=== PATIENT | female | born 1985 | race Caucasian/White ===

== ENCOUNTER 2017-04-14 20:19 | Inpatient (IN) | payer OTHER ==
[~2017-04-14] VITALS: Ht 167.6 cm; Wt 113.4 kg
[~2017-04-14 20:19] MED LIST: RANI150 PO; SULF1TAB47 PO
[2017-04-14 21:50] LABS: AUTOMATED NEUTROPHIL # 5.4 TH/MM3 (1.8-7.7); BASOPHIL % 0.4 % (0.0-2.0); EOSINOPHIL # 0.1 TH/MM3 (0-0.4); EOSINOPHIL % 0.9 % (0.0-4.0); HEMATOCRIT 29.2 % (35.0-46.0); HEMO FLAGS DIFF FINAL; LYMPH % 24.3 % (9.0-44.0); LYMPHOCYTE # 1.9 TH/MM3 (1.0-4.8); MEAN CELL VOLUME 83.8 FL (80.0-100.0); MEAN CORPUSCULAR HEMOGLOBIN 28.5 PG (27.0-34.0); MONO % 6.6 % (0.0-8.0); NEUT % 67.8 % (16.0-70.0); PLATELET COUNT 239 TH/MM3 (150-450); RED BLOOD COUNT 3.48 MIL/MM3 (4.00-5.30); RED CELL DISTRIBUTION WIDTH 13.8 % (11.6-17.2); WHITE BLOOD COUNT 7.9 TH/MM3 (4.0-11.0)
[2017-04-14 21:57] LABS: BACTERIA, URINE OCC /hpf; BLOOD, URINE NEG (NEG); COMMENT (UR) CULT NOT INDICATED; CULTURE IF INDICATED CULT NOT INDICATED; GLUCOSE,URINE NEG (NEG); HYALINE CAST, URINE 2 /lpf (RARE); KETONE, URINE 10 mg/dL (NEG); MUCUS URINE MANY /lpf (OCC); NITRITE,URINE NEG (NEG); PH, URINE 5.5 (5.0-8.5); SQUAMOUS EPITHELIAL CELL URINE 4 /hpf (0-5); URINE COLOR YELLOW (YELLW/STRAW)
[2017-04-14] MEDS ORDERED: SODIUM CHLORIDE 0.9% FLUSH 10 ML FLUSH IV FLUSH PRN (22:00)
[2017-04-14] MEDS ORDERED: LIDOCAINE HCL 1% 50 ML VIAL I-DERMAL PRN (22:00)
[2017-04-14] MEDS ORDERED: LIDOCAINE HCL 1% 50 ML VIAL INFIL PRN (22:00)
[2017-04-14] MEDS ORDERED: NS 1000 ML IV PRN (22:00)
[2017-04-14] MEDS ORDERED: OXYTOCIN 30 UNITS 500ML PREMIX IV ONE (22:00)
[2017-04-14] MEDS ORDERED: MINERAL OIL 10 ML VIAL TOPICAL PRN (22:00)
[2017-04-14] MEDS ORDERED: NS 1000 ML OTHER PRN (22:00)
[2017-04-14] MEDS ORDERED: DINOPROSTONE 10 MG INSERT-LEAVE FOR 12 HOURS VAGINAL ONE (22:00)
[2017-04-14] MEDS ORDERED: CITRIC ACID-SODIUM CITRATE LIQ 30 ML UDC PO SCH (22:00)
[2017-04-14] MEDS ORDERED: LACTATED RINGER'S 1000 ML IV SCH (22:00)
[2017-04-14] MEDS ORDERED: NS 500 ML BOLUS IV PRN (22:00)
[2017-04-14] MEDS ORDERED: ONDANSETRON HCL 4 MG/2 ML VIAL IV PRN (22:00)
[2017-04-14] MEDS ORDERED: ZOLPIDEM TARTRATE 10 MG TAB PO PRN (22:00)
[2017-04-14] MEDS ORDERED: LACTATED RINGER'S 1000 ML INJ 1,000 ML IV SCH (22:00)
[2017-04-14] MEDS ORDERED: LACTATED RINGER'S 1000 ML BOLUS IV PRN (22:00)
[2017-04-14] MEDS ORDERED: ACETAMINOPHEN 325 MG TAB PO PRN (22:15)
[2017-04-14 23:46] VITALS: BP 104/52; PULSE 80
[2017-04-14 23:50] VITALS: RESP 18; TEMP 97.8
[2017-04-15] VITALS (27 sets, daily range): BP systolic 97–119; BP diastolic 45–73; PULSE 70–93; RESP 1–19; TEMP 97.4–98.7; O2SAT 100
[2017-04-15] MEDS ORDERED: PENICILLIN G POT 5,000,000 UNITS/NS 100 ML (Mini-Bag Plus) IV ONE ×2 (10:00)
[2017-04-15] MEDS ORDERED: OXYTOCIN 30 UNITS-500ML PREMIX 500 ML IV SCH (10:30)
--- NOTE | 2017-04-15 10:39 | PD.LABORPN ---
Subjective Subjective Feeling contractions every 3-5 min; no longer feeling vaginal burning s/p cervidil being removed around 845A today; questionable LOF but pt has been ambulating to frequently Objective Vital Signs Vital Signs Date Time Temp Pulse Resp B/P Pulse Ox O2 Delivery O2 Flow Rate FiO2 04/15/17 10:15 17 04/15/17 09:38 16 04/15/17 07:15 17 04/15/17 05:58 97.5 18 04/15/17 05:57 90 111/73 04/15/17 05:00 18 04/15/17 05:00 90 04/15/17 05:00 108/66 04/15/17 05:00 97.4 1 04/15/17 04:00 18 04/15/17 03:00 18 04/15/17 03:00 97.7 Objective Pelvic Exam: Cervix: [mid] Dilatation: [3-4] Effacement: [70] Station: [-3] Presentation: [vtx] Membranes: [intact] Uterine Contractions: [q3-5 min] FHT's: Category: [I] Baseline: [140s] Reactive: [y] Variability: [y] Decels: [n] Assessment/Plan Problem List: (1) Labor and delivery indication for care or intervention (2) Gestational diabetes Assessment and Plan 31 yo G1 with crowder IUP at 39w5d by LMP c/w 1st trimester sono admit for IOL at term due to GDM, S>D, suspected macrosomia 1) IOL: pt aware of risk of failed induction and need for , especially based on suspected CPD; s/p cervidil overnight, progressed from 2 > 3-4 cm but still very high station; start pitocin augmentation, plan IUPC after SROM or AROM to monitor labor progress closely; ok for epidural if desires 2) GDM: diet controlled, continue accuchecks as ordered, wnl 3) status: Cat I tracing, EFW 9+ # Marta Murillo MD Apr 15, 2017 10:39
[2017-04-15] MEDS: PENICILLIN G POT 2,500,000 UNITS/NS 100 ML IV SCH ×4 (10:44→14:10)
[2017-04-15] MEDS ORDERED: LACTATED RINGER'S 1000 ML INJ 1,000 ML IV ONE (18:59)
--- NOTE | 2017-04-15 19:01 | HHI.PR ---
HAIR DRESSER Note Note Recheck of patient with no cervical waste/materials exchange specialist past 7 hours. SVE remains 3-4/ 70/-3. head very anterior and not applied. Suspect CPD. D/w pt option: continue augmentation with suspected CPD or proceed with now for arrest of labor. Reviewed r/b/a of surgery, procedure reviewed in detail, all questions answered. pt & agree to proceed with . kettle coordinator, anesthesia team made aware. Preop orders placed. Marta Murillo MD Apr 15, 2017 19:01
[2017-04-15] MEDS ORDERED: PERI8.6T PO (19:03)
[2017-04-15] MEDS ORDERED: PERC5TAB12 PO (19:03)
[2017-04-15] MEDS ORDERED: IBUP-232 PO (19:03)
[2017-04-15] MEDS ORDERED: MORPHINE SULFATE PF 5 MG/10 ML VIAL ONE (19:27)
[2017-04-15] MEDS ORDERED: OXYTOCIN 10 UNIT/ML AMP ONE (19:27)
[2017-04-15] MEDS ORDERED: ceFAZolin 2 GM PREMIX 50 ML IV SCH (20:00)
[2017-04-15] MEDS ORDERED: ONDANSETRON HCL 4 MG/2 ML VIAL IV PUSH PRN (20:30)
[2017-04-15] MEDS ORDERED: KETOROLAC TROMETHAMINE 60 MG/2 ML (IM) VIAL IM PRN (20:30)
[2017-04-15] MEDS ORDERED: CITRIC ACID-SODIUM CITRATE LIQ 30 ML UDC PO SCH (20:30)
[2017-04-15] MEDS ORDERED: OXYTOCIN 30 UNITS-500ML PREMIX 500 ML IV ONE (20:30)
[2017-04-15] MEDS ORDERED: ACETAMINOPHEN 1000 MG/100 ML VIAL IV ONE (20:30)
[2017-04-15] MEDS ORDERED: ZOLPIDEM TARTRATE 5 MG TAB PO PRN (20:30)
[2017-04-15] MEDS ORDERED: ACETAMINOPHEN 325 MG TAB PO PRN (20:30)
[2017-04-15] MEDS ORDERED: SIMETHICONE 80 MG CHEWABLE TAB PO PRN (20:30)
[2017-04-15] MEDS ORDERED: SODIUM CHLORIDE 0.9% FLUSH 10 ML FLUSH IV FLUSH PRN (20:30)
--- NOTE | 2017-04-15 20:34 | PD.OB.DELI ---
Procedure Note Section Procedure Pre Op Diagnosis: (1) Arrested active phase of labor (2) Labor and delivery indication for care or intervention (3) Gestational diabetes Post Op Diagnosis: (1) S/P primary low transverse (2) Arrested active labor, delivered, current hospitalization (3) Gestational diabetes Performed by Marta Murillo Procedure: Primary Low Transverse Sec Indication for delivery: Other (arrested labor, suspected CPD/macrosomia) Informed consent obtained: For anesthesia, For procedure Confirmed correct: Patient, Procedure, Site, Time-out taken Anesthesia: Spinal Medication prior to procedure: As documented in eMAR Monitoring during procedure: Blood pressure monitoring, compliance monitor, Pulse oximetry Urinary catheter: Inserted using sterile technique, To dependent drainage, ml urine output (50) Sterile preparation: Duraprep, In usual fashion, With drapes to expose affected area Position: Supine with wedge to right side Operative Features Skin Incision: Pfannenstiel Uterine Incision: Low transverse w/knife / scissors Membranes Ruptured: Amount of liquid (copious), Appearance of fluid (clear) Presentation: Vertex, Other (occult cord prolapse at time of hysterotomy) Delivery of : Uneventful : Male, Single One Minute : 9 Five Minute : 9 Weight: 9#12oz Status of : Viable, Cord blood, Nursery present Placenta delivered: Intact Medications: Antibiotics (Ancef 2g IV preop) Estimated blood loss: 800 mL Procedure tolerated: Well Maternal Condition: Stable Condition: Stable Procedure in detail see dictated op note for full details Marta Murillo MD Apr 15, 2017 20:34
[2017-04-15] MEDS ORDERED: SODIUM CHLORIDE 0.9% FLUSH 10 ML FLUSH IV FLUSH SCH (21:00)
--- NOTE | 2017-04-15 21:07 | MP ---
cc: MIKAYLA BURTON DATE OF SURGERY 04/15/17 PREOPERATIVE DIAGNOSIS 1. Osuna intrauterine at 39 weeks and 5 days. 2. Arrest of labor, failure to progress. 3. Gestational diabetes, diet controlled. 4. Suspected macrosomia. 5. Suspected cephalopelvic disproportion. POSTOPERATIVE DIAGNOSIS 1. Osuna intrauterine at 39 weeks and 5 days. 2. Arrest of labor, failure to progress. 3. Gestational diabetes, diet controlled. 4. Suspected macrosomia. 5. Suspected cephalopelvic disproportion. 6. Postop day number zero. INDICATIONS Latha Tinajero is a 31-year-old 1, now para 1-0-0-1 who was seen and evaluated during her with complication of gestational diabetes. When she was seen at her at 39 and 1/2 week office visit her cervix was favorable, 2 cm dilated, 50% effaced and discussion for labor induction due to complication of gestational diabetes. She was brought in for induction on the evening of April 14 with Cervidil overnight. She progressed from 2 to 4 cm, 70% effaced at -3 station. She had consistent contractions throughout the day on Pitocin augmentation with no cervical change after more than 7 hours. Diagnosed with arrest of labor and decision for delivery. PROCEDURE PERFORMED Primary low transverse delivery with low vertical extension, not in the contractile portion of the uterus. SURGEON Mikayla Burton MD ANESTHESIA Spinal. ESTIMATED BLOOD LOSS 800 ml. IV FLUID PLACEMENT 2200 ml. URINE OUTPUT 50 ml clear urine draining in the Celeste at the end of the procedure. The patient had voided just prior to coming into the operating room. SPECIMEN None. COUNTS Sponge, lap, instrument, needle correct x2 at the conclusion of the procedure. INTRAOPERATIVE FINDINGS Include a vigorous male weighing 9 pounds 12 ounces with Apgars of 9 and 9. Copious amniotic fluid. At time of hysterotomy there was an occult cord prolapse that was able to be reduced. There was very small vertical extension of the low transverse uterine incision but it was not in the contractile portion of the uterus and this was able to be incorporated into the repair of the low transverse uterine incision. PROPHYLAXIS Ancef 2 grams IV was given preoperatively. The patient had been on penicillin during labor process due to GBS positive status. SCDs were on and functioning throughout the entire case. COMPLICATIONS A small low vertical extension of the low transverse hysterotomy. This should not preclude the patient's attempt for vaginal after in the future, but based on her anatomy with narrow pelvis if there is any suspicion for 8 pounds or greater infant weight I will residential youth counselor patient in the future for elective repeat . PROCEDURE IN DETAIL After reviewing the informed consent the patient was taken to the operating suite where a time-out was formed to identify the patient, planned procedure and any known allergies to her drugs or drug products. The patient was then placed sitting up on the operative table and spinal anesthesia was administered without difficulty and found to be adequate. The patient was then laid in dorsal supine position with a bump under her right side. Abdomen and perineum were prepped and draped in normal sterile fashion and Celeste catheter was placed using sterile technique. Pfannenstiel's type skin incision was made with the scalpel, carried down to the underlying layer of fascia with Bovie. Fascia was incised in the midline. Incision was extended laterally with sharp dissection using Ly scissors. Superior edge of the fascial incision was elevated with Manju clamps. Rectus muscles dissected off sharply with Ly scissors. Kochers then moved to the inferior portion of the fascial incision and again elevated and rectus muscle dissected off sharply with Ly scissors. Rectus muscles were then in the midline. Peritoneum identified, entered bluntly. Incision was extended laterally with blunt dissection. Bladder blade was placed. A bladder flap was not made. Low transverse uterine incision was made with a scalpel. On entry into the uterine cavity there was an immediate occult cord prolapse. This was reduced. It was difficult to laterally extend the incision as necessary with bandage scissors so a small midline low vertical incision was made. The 's head was then grasped and delivered successfully out through the incision, with gentle maneuvering the rest of the body readily followed. The infant was immediately crying upon delivery. Cord was doubly clamped and cut and was handed off to the awaiting nursery staff. Cord blood sample was taken. Placenta was delivered spontaneously with gentle cord traction and fundal massage. Uterus was exteriorized, cleared of all clots and debris with sterile moist lap sponges. Hysterotomy was repaired in a double layer, first using #1 chromic in a running locked fashion and that small low vertical extension was able to be incorporated into the low transverse incision line. A second imbricating layer was then performed with excellent hemostasis noted. The posterior cul-de-sac was then irrigated copiously with warm sterile saline. The uterus was returned to the abdomen. Additional irrigation with suction was performed. A layer of Interceed was placed over the repaired incision line to act as an adhesive barrier. The peritoneum was then closed in a running layer with 2-0 chromic. Fascia was closed in running layer of #1 Vicryl. Subcutaneous tissue was irrigated copiously with warm sterile saline and the skin was closed in subcuticular fashion with 3-0 Monocryl. Skin was cleaned and dried and standard dressing was placed. The procedure completed at this point. The patient tolerated the procedure well. DISPOSITION The patient and infant are resting in the Post Anesthesia Care Unit. is nursery status. MD NAOMI Winchester/BHAVIN /8:24 PM /8:36 PM ANDRIY
[2017-04-15] MEDS ORDERED: EPIDURAL-NALOXONE HCL 0.4 MG/ML AMP IV PRN (22:30)
[2017-04-15] MEDS ORDERED: EPIDURAL-NO SYSTEMIC NARCOTICS PRN (22:30)
[2017-04-15] MEDS ORDERED: EPIDURAL-DIPHENHYDRAMINE HCL 50 MG CAP PO PRN (22:30)
[2017-04-15] MEDS ORDERED: EPIDURAL-DO NOT ADMINISTER ANTICOAGULANTS PRN (22:30)
[2017-04-15] MEDS ORDERED: EPIDURAL-DIPHENHYDRAMINE HCL 50 MG/ML VIAL IV PUSH PRN (22:30)
[2017-04-16] VITALS (10 sets, daily range): BP systolic 89–109; BP diastolic 55–64; PULSE 59–94; RESP 16–20; TEMP 97.5–98.9
[2017-04-16] MEDS ORDERED: LACTATED RINGER'S 1000 ML INJ 1,000 ML IV SCH (01:27)
[2017-04-16] MEDS: LACTATED RINGER'S 1000 ML INJ 1,000 ML IV SCH ×2 (04:16→08:49)
[2017-04-16 05:22] LABS: BASOPHIL % 0.1 % (0.0-2.0); EOSINOPHIL % 0.1 % (0.0-4.0); HEMATOCRIT 27.6 % (35.0-46.0); HEMO FLAGS DIFF FINAL; LYMPH % 7.6 % (9.0-44.0); LYMPHOCYTE # 0.9 TH/MM3 (1.0-4.8); MEAN CELL VOLUME 85.1 FL (80.0-100.0); MEAN CORPUSCULAR HEMOGLOBIN 27.1 PG (27.0-34.0); MEAN CORPUSCULAR HGB CONC 31.8 % (32.0-36.0); NEUT % 88.2 % (16.0-70.0); PLATELET COUNT 229 TH/MM3 (150-450); RED BLOOD COUNT 3.24 MIL/MM3 (4.00-5.30); RED CELL DISTRIBUTION WIDTH 13.7 % (11.6-17.2); WHITE BLOOD COUNT 12.5 TH/MM3 (4.0-11.0)
[2017-04-16] MEDS ORDERED: OXYTOCIN 30 UNITS-500ML PREMIX 500 ML IV PRN (06:30)
[2017-04-16] MEDS: DOCUSATE SODIUM 50 MG/SENNA 8.6 MG TAB PO SCH ×2 (08:17→20:24)
[2017-04-16] MEDS: oxyCODONE/ACETAMINOPHEN 5 MG/325 MG TAB PO PRN ×3 (08:17→19:16)
[2017-04-16] MEDS: IBUPROFEN 600 MG TAB PO PRN ×3 (08:17→20:24)
--- NOTE | 2017-04-16 08:55 | HHI.OB ---
Subjective Post Operative Day: 1 Remarks s/p primary LTCD after arrest of labor, suspected CPD Objective Vitals/I&O Vital Signs Date Time Temp Pulse Resp B/P Pulse Ox O2 Delivery O2 Flow Rate FiO2 04/16/17 08:00 97.5 18 04/16/17 08:00 85 94/64 04/16/17 07:50 59 89/55 04/16/17 04:00 92/57 04/16/17 04:00 97.9 72 16 04/16/17 00:15 98.0 70 16 109/62 04/15/17 21:45 112/56 04/15/17 21:45 70 18 100 04/15/17 21:30 77 18 105/54 100 04/15/17 21:15 93 107/61 04/15/17 21:15 18 100 04/15/17 21:00 74 18 100 04/15/17 21:00 101/51 04/15/17 20:45 90 18 106/56 100 04/15/17 20:30 97.9 18 100 04/15/17 20:30 92 106/59 04/15/17 18:31 78 119/60 04/15/17 18:30 98.2 18 04/15/17 16:36 91 97/54 04/15/17 15:43 78 100/45 04/15/17 14:24 18 04/15/17 13:27 18 04/15/17 13:00 77 98/54 04/15/17 13:00 19 04/15/17 11:30 17 04/15/17 10:45 98.7 04/15/17 10:45 18 04/15/17 10:39 89 117/67 04/15/17 10:15 17 04/15/17 09:38 16 Result Diagram: 04/16/17 0505 Objective Remarks GENERAL: Well-nourished, well-developed patient. Obese. Slightly pale this AM. Has not eaten since 1pm yesterday. CARDIOVASCULAR: Regular rate and rhythm without murmurs, gallops, or rubs. RESPIRATORY: Breath sounds equal bilaterally. No accessory muscle use. ABDOMEN/GI: Abdomen soft, non-tender, bowel sounds present. Incision: bandage Clean, dry and intact. Fundus: Firm, non-tender at umbilicus. GENITOURINARY: Light bleeding. EXTREMITIES: No cyanosis or edema, non-tender, without signs of DVT. Medications and IVs Current Medications Medications (Trade) Dose Ordered Sig/Deon Route Start Time Stop Time Status Last Admin Oxytocin 500 ml @ 0 mls/hr TITRATE IV 04/15/17 10:30 04/15/17 10:45 Lactated Ringer's 1,000 ml @ 150 mls/hr Q6H40M IV 04/15/17 19:29 04/16/17 04:16 (Lr 1000 ml Inj) 1,000 ml @ 100 mls/hr Q10H IV 04/16/17 01:27 04/16/17 21:26 (NS Flush) 2 ml UNSCH PRN IV FLUSH 04/15/17 20:30 (Mylicon Chew) 80 mg QID PRN PO 04/15/17 20:30 (Tylenol) 650 mg Q6H PRN PO 04/15/17 20:30 (Motrin) 600 mg Q6H PRN PO 04/15/17 20:30 04/16/17 08:17 (Toradol Inj) 30 mg Q6H PRN IM 04/15/17 20:30 04/16/17 20:29 (Percocet 5-325 Mg) 1 tab Q4H PRN PO 04/15/17 20:30 04/16/17 08:17 (Percocet 5-325 Mg) 2 tab Q4H PRN PO 04/15/17 20:30 (Brenda-Colace) 1 tab Q12H PO 04/16/17 09:00 04/16/17 08:17 (Ambien) 5 mg HS PRN PO 04/15/17 20:30 (M-M-R Ii Inj) 0.5 ml ONCE ONCE SQ 04/16/17 16:00 04/16/17 16:01 (Boostrix Inj) 0.5 ml ONCE ONCE IM 04/16/17 16:00 04/16/17 16:01 (Zofran Inj) 4 mg Q6H PRN IV PUSH 04/15/17 20:30 Miscellaneous Information NO SYSTEMIC NARCOTICS TO BE GIVEN FO... UNSCH PRN .XX 04/15/17 22:30 04/16/17 22:29 (Narcan Inj) 0.4 mg UNSCH PRN IV 04/15/17 22:30 04/16/17 22:29 (Benadryl Inj) 25 mg Q6H PRN IV PUSH 04/15/17 22:30 04/16/17 22:29 (Benadryl) 50 mg Q6H PRN PO 04/15/17 22:30 04/16/17 22:29 04/16/17 02:03 Miscellaneous Information ALL NURSING DEPARTMENTS UNSCH PRN .XX 04/15/17 22:30 04/16/17 22:29 Assessment/Plan Problem List: (1) S/P primary low transverse (2) Arrested active labor, delivered, current hospitalization (3) Gestational diabetes Assessment and Plan PPD/POD#1 routine supportive care, pt feeling weak, has not eaten since 1P yesterday was able to ambulate, lara just removed, not yet voided encourage advance diet, ambulate, shower & remove bandage for circ, not feeding well yet, will plan for tmrw AM not yet meeting d/c criteria Discharge Planning routine, POD#3 Marta Murillo MD Apr 16, 2017 08:55
[2017-04-16] MEDS ORDERED: MEASLES, MUMPS, RUBELLA VACCINE 0.5 ML VIAL SQ ONE (16:00)
[2017-04-16] MEDS ORDERED: DIPHTH/TETANUS/ACEL PERTUSSIS (BOOSTER) 0.5 ML VIAL/PFS IM ONE (16:00)
[2017-04-17] MEDS: oxyCODONE/ACETAMINOPHEN 5 MG/325 MG TAB PO PRN ×4 (00:01→17:43)
[2017-04-17] MEDS: IBUPROFEN 600 MG TAB PO PRN ×3 (02:19→17:42)
[2017-04-17 08:00] VITALS: BP 88/48; PULSE 80; RESP 16; TEMP 98.1
[2017-04-17] MEDS: DOCUSATE SODIUM 50 MG/SENNA 8.6 MG TAB PO SCH (08:29)
--- NOTE | 2017-04-17 09:26 | HHI.OB ---
Subjective Post Operative Day: 2 Remarks Pt doing better today, ambulating, dimple po Objective Vitals/I&O Vital Signs Date Time Temp Pulse Resp B/P Pulse Ox O2 Delivery O2 Flow Rate FiO2 04/17/17 08:00 98.1 80 16 88/48 04/16/17 20:00 94 18 100/55 04/16/17 20:00 98.1 04/16/17 17:20 18 04/16/17 15:15 20 04/16/17 13:24 98.9 82 18 105/61 04/16/17 12:30 16 04/16/17 10:10 18 Result Diagram: 04/16/17 0505 Objective Remarks GENERAL: Well-nourished, well-developed patient. Obese. Slightly pale this AM. Has not eaten since 1pm yesterday. CARDIOVASCULAR: Regular rate and rhythm without murmurs, gallops, or rubs. RESPIRATORY: Breath sounds equal bilaterally. No accessory muscle use. ABDOMEN/GI: Abdomen soft, non-tender, bowel sounds present. Incision: Clean, dry and intact. Fundus: Firm, non-tender at umbilicus. GENITOURINARY: Light bleeding. EXTREMITIES: No cyanosis or edema, non-tender, without signs of DVT. Medications and IVs Current Medications Medications (Trade) Dose Ordered Sig/Deon Route Start Time Stop Time Status Last Admin Oxytocin 500 ml @ 0 mls/hr TITRATE IV 04/15/17 10:30 04/15/17 10:45 (Lr 1000 ml Inj) 1,000 ml @ 150 mls/hr Q6H40M IV 04/15/17 19:29 04/16/17 04:16 (NS Flush) 2 ml UNSCH PRN IV FLUSH 04/15/17 20:30 (Mylicon Chew) 80 mg QID PRN PO 04/15/17 20:30 (Tylenol) 650 mg Q6H PRN PO 04/15/17 20:30 (Motrin) 600 mg Q6H PRN PO 04/15/17 20:30 04/17/17 02:19 (Percocet 5-325 Mg) 1 tab Q4H PRN PO 04/15/17 20:30 04/17/17 06:06 (Percocet 5-325 Mg) 2 tab Q4H PRN PO 04/15/17 20:30 (Brenda-Colace) 1 tab Q12H PO 04/16/17 09:00 04/17/17 08:29 (Ambien) 5 mg HS PRN PO 04/15/17 20:30 (Zofran Inj) 4 mg Q6H PRN IV PUSH 04/15/17 20:30 Assessment/Plan Problem List: (1) S/P primary low transverse (2) Arrested active labor, delivered, current hospitalization (3) Gestational diabetes Assessment and Plan PPD/POD#2 continue routine supportive care, pain control improved today, pt circ performed on today Discharge Planning routine, POD#3 Brigida Smith MD Apr 17, 2017 09:26
[2017-04-17 10:47] VITALS: BP 108/67; PULSE 94; RESP 16
[2017-04-17 21:10] VITALS: BP 95/62; PULSE 80; RESP 18; TEMP 98.4
[2017-04-18] MEDS: DOCUSATE SODIUM 50 MG/SENNA 8.6 MG TAB PO SCH ×2 (00:30→09:01)
[2017-04-18] MEDS: oxyCODONE/ACETAMINOPHEN 5 MG/325 MG TAB PO PRN ×2 (00:30→06:33)
[2017-04-18] MEDS: IBUPROFEN 600 MG TAB PO PRN ×2 (00:30→06:33)
--- NOTE | 2017-04-18 07:51 | MH ---
cc: LUDWIN STARKEY M.D. DATE OF ADMISSION: 04/14/2017 DATE OF : 1985 PATIENT HISTORY The patient is 31-year-old female, 1, para 0, estimated date confinement is April 20, 2017. Last menstrual period was July 14, 2016. First trimester ultrasound performed September 23, 2016 measured 10 weeks and 2 days on a crown-rump length. The patient presented today for routine care. A non-stress test was reactive. The patient has a history of gestational diabetes, moderately controlled with diet. The patient's recent blood sugars fasting are in the 90s. The patient has an occasional two-hour postprandial over 120, ranging 130-140. PAST MEDICAL HISTORY 1. History of anxiety and panic attacks, not currently on medication. 2. History of gastroesophageal reflux treated with Prilosec and Zantac. 3. The patient is a prior smoker, quit in August 2016. ALLERGIES No known drug allergies. MEDICATIONS Current medications include: 1. Zantac 150 mg b.i.d. 2. vitamins. PAST SURGICAL HISTORY Noncontributory. FAMILY HISTORY Noncontributory. SOCIAL HISTORY The patient is . Denies the use of alcohol or illicit substances. 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 OBSTETRICAL HISTORY As noted above. The patient is group-B strep positive. She is varicella nonimmune. Pap smear is normal. The patient's blood type is A+. PHYSICAL EXAMINATION GENERAL: A well-appearing, well-nourished female in no acute distress. VITAL SIGNS: Stable. Blood pressure 100/60. heart rate in the 140s and reactive. HEENT/NECK: No adenopathy or thyromegaly. LUNGS: Clear in all pinon. CARDIAC: Regular rate and rhythm. ABDOMEN: Gravid. Estimated weight is in excess of 8 pounds, suspect 9 pounds. PELVIC: Exam reveals a posterior to mid position cervix, -2 position, 50%, soft and 2 cm, intact, vertex. EXTREMITIES: Symmetrical. Full range of motion. No cyanosis, clubbing or edema. NEUROLOGIC: Grossly intact. Nonfocal. ASSESSMENT AND PLAN The patient is at 39 weeks and 1 day, primigravida, history of diet-controlled gestational diabetes, suspect large for gestational age infant. Cervix is inducible. The patient will be brought in for cervical ripening with Cervidil. She is group-B strep positive. Blood sugars will be monitored by Accu-Chek. The patient has been counseled to the concerns for the size of the in regards to potential for dystocia and need for delivery as indicated. The case was discussed with Dr. Murillo who is aware and in agreement with the patient's induction of labor. Ludwin Starkey MD SJKristofer/BT /2:20 PM /7:46 AM
--- NOTE | 2017-04-18 08:37 | HHI.OB ---
Subjective Post Operative Day: 3 Remarks Doing well and excited for discharge Objective Vitals/I&O Vital Signs Date Time Temp Pulse Resp B/P Pulse Ox O2 Delivery O2 Flow Rate FiO2 04/18/17 01:30 16 04/18/17 01:30 16 04/17/17 21:10 98.4 18 04/17/17 21:10 80 95/62 04/17/17 10:47 94 16 108/67 Result Diagram: 04/16/17 0505 Objective Remarks GENERAL: Well-nourished, well-developed patient. Obese. Slightly pale this AM. Has not eaten since 1pm yesterday. CARDIOVASCULAR: Regular rate and rhythm without murmurs, gallops, or rubs. RESPIRATORY: Breath sounds equal bilaterally. No accessory muscle use. ABDOMEN/GI: Abdomen soft, non-tender, bowel sounds present. Incision: Clean, dry and intact. Fundus: Firm, non-tender at umbilicus. GENITOURINARY: Light bleeding. EXTREMITIES: No cyanosis or edema, non-tender, without signs of DVT. Medications and IVs Current Medications Medications (Trade) Dose Ordered Sig/Deon Route Start Time Stop Time Status Last Admin Oxytocin 500 ml @ 0 mls/hr TITRATE IV 04/15/17 10:30 04/15/17 10:45 (Lr 1000 ml Inj) 1,000 ml @ 150 mls/hr Q6H40M IV 04/15/17 19:29 04/16/17 04:16 (NS Flush) 2 ml UNSCH PRN IV FLUSH 04/15/17 20:30 (Mylicon Chew) 80 mg QID PRN PO 04/15/17 20:30 (Tylenol) 650 mg Q6H PRN PO 04/15/17 20:30 (Motrin) 600 mg Q6H PRN PO 04/15/17 20:30 04/18/17 06:33 (Percocet 5-325 Mg) 1 tab Q4H PRN PO 04/15/17 20:30 04/18/17 06:33 (Percocet 5-325 Mg) 2 tab Q4H PRN PO 04/15/17 20:30 04/18/17 00:30 (Brenda-Colace) 1 tab Q12H PO 04/16/17 09:00 8/8/17 00:30 (Ambien) 5 mg HS PRN PO 04/15/17 20:30 (Zofran Inj) 4 mg Q6H PRN IV PUSH 04/15/17 20:30 Assessment/Plan Problem List: (1) S/P primary low transverse (2) Arrested active labor, delivered, current hospitalization (3) Gestational diabetes Assessment and Plan POD 3 ready for discharge iron for anemia Discharge Planning routine, POD#3 Ifrah Mena MD Apr 18, 2017 08:37
[2017-04-18] MEDS ORDERED: FERR325T8 PO (08:38)
--- NOTE | 2017-04-18 08:38 | HHI.DCPOC ---
Discharge Care Plan Report Symptoms to Your Doctor -Temperature above 100.5 degrees -Redness, of incision or excessive or foul smelling drainage -Unusual pain or calf pain -Increased vaginal bleeding -Painful or difficulty urinating -Feelings of extreme sadness or anxiety after 2 weeks Goals to Promote Your Health * To prevent worsening of your condition and complications * To maintain your health at the optimal level Directions to Meet Your Goals Take your medications as prescribed Follow your dietary instruction Follow activity as directed Ensure plenty of rest for recovery Drink fluids for hydration Keep your appointments as scheduled Take your immunizations and boosters as scheduled If your symptoms worsen call your PCP, if no PCP go to Urgent Care Center or Emergency Room Smoking is Dangerous to Your Health. Avoid second hand smoke Call the 24-hour crisis hotline for domestic abuse at Ifrah Mena MD Apr 18, 2017 08:38
[2017-04-18 09:00] VITALS: BP 112/71; PULSE 85; RESP 18; TEMP 98.1
== END 2017-04-18 12:54 | disposition home or self-care (01) | DRG 765 ==
LOC: H2EA 20:19 → H1EA 04-15 22:00
PROVIDERS: ADMIT Obstetrics & Gynecology; ATTEND Obstetrics & Gynecology
PROC: 3E0P7GC Introduction of Other Therapeutic Substance into Female Reproductive, Via Natural or Artificial Opening (ICD-10-PCS; 2017-04-14)
PROC: 10D00Z1 Extraction of Products of Conception, Low, Open Approach (ICD-10-PCS; principal; 2017-04-15)
PROC: 3E0P05Z Introduction of Adhesion Barrier into Female Reproductive, Open Approach (ICD-10-PCS; 2017-04-15)
DX: O24.420 Gestational diabetes mellitus in childbirth, diet controlled (principal); Z68.41 Body mass index [BMI] 40.0-44.9, adult; O99.214 Obesity complicating childbirth; K21.9 Gastro-esophageal reflux disease without esophagitis; O99.824 Streptococcus B carrier state complicating childbirth; Z37.0 Single live birth; Z3A.39 39 weeks gestation of pregnancy; O36.63X0 Maternal care for excessive fetal growth, third trimester, not applicable or unspecified; Z87.891 Personal history of nicotine dependence; O62.1 Secondary uterine inertia; O90.81 Anemia of the puerperium; D64.9 Anemia, unspecified; O99.62 Diseases of the digestive system complicating childbirth
CPT/HCPCS: 81001; 82948; 85025; 86900; 86901; C1765; J0131; J2274; J2540; J2590; J7120; Q0163